=== PATIENT | female | born 1960 | race Caucasian/White ===

== ENCOUNTER 2019-05-03 13:30 | Inpatient (IN) | payer BC ==
[~2019-05-03] VITALS: Ht 152.4 cm; Wt 74.2 kg
[2019-05-30] VITALS (11 sets, daily range): BP systolic 95–138; BP diastolic 47–83; PULSE 75–99; TEMP 97.3–98.9
[2019-05-30] MEDS ORDERED: NORVASC 5MG5 MG/TAB PO (06:35)
[2019-05-30] MEDS ORDERED: PRINIVIL10 MG PO (06:36)
[2019-05-30] MEDS ORDERED: NEXIUM 24HR20 M1 PO (06:37)
[2019-05-30] MEDS ORDERED: PRESERVISION1 SGL PO (06:38)
[2019-05-30] MEDS ORDERED: STOOL SOFTENER100 M2 PO (06:38)
[2019-05-30] MEDS ORDERED: ALEVE 220MG220 MG PO (06:39)
--- NOTE | 2019-05-30 12:55 | NUR ---
Pt arrived to floor at this time via bed with OR staff. Sleepy but arouses and states she is having pain. Discussed need to keep risk for RR depression and NREMT depression a priority but will give pain medications as ordered. Abd has 5 lap sites and 1 midline that are all CDI, midline covered with gauze and tape and five lap sites covered with bandaids. IVF to LH. Family at bedside, will continue to monitor.
--- NOTE | 2019-05-30 18:13 | NUR ---
Pt doing well. Resting in bed after getting up and ambulating around floor. Doing well. Abd remains CDI. Will give bedside shift report to nightshift nurse who will resume care.
--- NOTE | 2019-05-30 20:00 | NUR ---
Report received from Tammie MCLAUGHLIN. Patient sitting up on side of bed then ambulates in hallway with PRODUCT SUPPORT ENGINEER. Steady gait. Denies dizzines. Reports shoulder discomfort. Scheduled pain meds reviewed and given along with antibiotics ordered. Rests back in bed. Warm pack to back and shoulders.
--- NOTE | 2019-05-30 22:30 | NUR ---
Reports "think it's a sinus headache" 5/10 on pain scale and scheduled tylenol given. Reports 45 minutes later that headache gone. Kpad given to back and shoulders.
--- NOTE | 2019-05-31 02:30 | NUR ---
Awakened by nurse for IV toradol. States abdominal soreness 12/06 "not too bad". Snack of ensure clear and grape popsicle given.
[2019-05-31 03:28] VITALS: BP 113/64; PULSE 93; TEMP 98.3
--- NOTE | 2019-05-31 03:30 | NUR ---
Patient ambulated in hallway with LAND RESOURCE SPECIALIST.
--- NOTE | 2019-05-31 06:06 | NUR ---
patient awake and has moist harsh couph encouraged . Reports abdominal soreness 03/07 following couph. Scheduled tylenol given.
[2019-05-31 06:54] LABS: BASO % 0.2 % (0.0-2.0); GRAN # 10.4 (1.4-6.5); GRAN % 81.8 % (42.2-75.2); HEMOGLOBIN 11.9 g/dl (12.5-16.0); LYMPH # 1.2 (1.2-3.4); MEAN CELL VOLUME 94 fl (80.0-100.0); MEAN CORPUSCULAR HEMOGLOBIN 32 pg (27.0-31.0); MEAN CORPUSCULAR HGB CONC 34 g/dl (33.0-37.0); MEAN PLATELET VOLUME 11.1 fl (7.4-10.4); MONO # 1.1 (0.1-0.6); MONO % 8.5 % (1.7-9.3); PLATELET COUNT 206 K/mm3 (130-400); RED BLOOD COUNT 3.69 M/mm3 (4.10-5.30); REDCELL DISTRIBUTION WIDTH-CV 13.6 % (11.5-14.5)
[2019-05-31 06:58] LABS: HEMATOCRIT 34.8 % (37.0-47.0)
[2019-05-31 07:02] LABS: CALCIUM 8.4 mg/dL (8.4-10.2); CREATININE, serum 0.58 (0.52-1.25); POTASSIUM 3.7 mmol/L (3.4-5.0)
[2019-05-31 07:55] VITALS: BP 111/65; PULSE 91; TEMP 98.7
--- NOTE | 2019-05-31 08:00 | NUR ---
UPON ENTRY TO THE ROOM THE PATIENT IS RESTING IN BED. PATIENT IS A&OX4. TACHYCARDIA NOTED, OTHERWISE VSS. BOWEL SOUNDS HYPOACTIVE ALL FOUR QUADRANTS. PATIENT TOLERATING CLEAR LIQUIDS WITH SOME NAUSEA. PATIENT DENIES VOMITING. ABDOMINAL LAP SITES X5 DRESSED WITH BANDAIDS AND ARE CD&I. LOW TRANSVERSE DRESSED WITH GAUZE & HYPAFIX DRESSING WITH SCANT AMOUNTS OF SHADING PRESENT. K-PAD TO ABDOMEN. INDWELLING MURCIA CATHETER TO DEPENDENT DRAINAGE WITH CLEAR, PALE YELLOW URINE PRESENT IN MURCIA BAG. LEFT HAND TO INT. POSITIVE PEDAL PULSES EQUAL BILATERALLY. SCD'S TO BLE. CALL LIGHT WITHIN REACH. PATIENT DENIES ANY OTHER NEEDS AT THIS TIME.
--- NOTE | 2019-05-31 09:58 | NUR ---
Initial visit; Patient thanked Private Equity Analyst for looking in on her and offering God's blessings.
[2019-05-31 13:00] VITALS: BP 127/70; PULSE 92; TEMP 98.4
--- NOTE | 2019-05-31 13:48 | NUR ---
Plan:To return home with family supports. Assess: Patient reports that she resides alone at home in [facility]. Patient indicated that she has some family and friend support. Patient reports that her EMR contact is Ursula Jiang . Patient will be transported home by friend. Patient reports that she uses [facility] for RX and does not require any DME. Patient denies having a DPOA and declined setting one up. Client inidcated that she has an ADA apt. Action: VIVIANA educated patient on resources available. No additional concerns identifed.
--- NOTE | 2019-05-31 14:34 | NUR ---
PATIENT STATES THAT SHE IS FEELING NAUSEATED. PATIENT GIVEN PRN DOSE OF IV ZOFRAN. WILL CONTINUE TO MONITOR.
[2019-05-31 16:26] VITALS: BP 120/62; PULSE 91
--- NOTE | 2019-05-31 19:28 | NUR ---
REPORT GIVEN TO LISSETTE MCKINNON.
[2019-05-31 19:48] VITALS: BP 119/69; PULSE 107; TEMP 98.8
--- NOTE | 2019-05-31 20:32 | NUR ---
Patient request "something for heartburn" prior to adminstration of medication. Spoke with Dr. Pro. Tums 1-2 tabs Q4H PRN.
--- NOTE | 2019-05-31 20:45 | NUR ---
Resting in bed. Assessment complete. Bases bilaterally crackles otherwise clear. Heart sounds normal. Bowels active x4. Pulses strong throughout. No edema noted. X5 lap sites CDI with bandaides. x1 left lower ABD transverse site, small areas x2 of drainage present. Reports 3/10 pain. Provided with scheduled toradol. Denies other needs at this time. Call light in reach.
--- NOTE | 2019-05-31 21:45 | NUR ---
Resting in bed. Denies needs at this time. Would like 2330 dose of tylenol at 0030. Call light in reach.
[2019-05-31 23:30] VITALS: BP 114/83; PULSE 119; TEMP 99.8
--- NOTE | 2019-05-31 23:40 | NUR ---
Patient reports bloody urine. Upon assessment small clot present in urine collection device. Patient reports first occurance. Denies pain or any other complications. Will closely monitor. Refused tylenol at this time.
--- NOTE | 2019-06-01 00:40 | NUR ---
Request PRN tums for heartburn. Provided with tums. Denies other needs. Call light in reach.
[2019-06-01 01:05] VITALS: PULSE 83
--- NOTE | 2019-06-01 01:05 | NUR ---
Pulse 119 with midnight vitals. RESIDENTIAL MENTAL HEALTH WORKER reports pain was up in restroom at time. Reassessed pulse now 83 while resting. Denies needs. Call light in reach.
--- NOTE | 2019-06-01 02:34 | NUR ---
Patient reports continued heart burn with nausea. Provided with PRN zofran. Patient had x2 episodes of emesis, red tinged. While vomiting-small amount of blood from vaginal area present on bed. Patient assisted to restroom for episode of diarrhea at this time. Patient requested privacy in restroom. Will reassess soon.
--- NOTE | 2019-06-01 02:45 | NUR ---
Patient diarrhea appears light brown stool with small dark red blood clots-minimal amount. Patient reports feeling better after. Will continue to closely monitor. Educated patient to report any more episodes of emesis/diarrhea.
[2019-06-01 03:23] VITALS: BP 122/75; PULSE 103; TEMP 98.3
--- NOTE | 2019-06-01 03:31 | NUR ---
Resting in bed. Denies needs. Call light in reach
--- NOTE | 2019-06-01 05:05 | NUR ---
Reports heart burn would like 0700 protonix now, refused tums and tylenol. Provided to patient. Will monitor.
--- NOTE | 2019-06-01 06:15 | NUR ---
Patient had x2 episodes of vomiting and x2 episodes of diarrhea throughout night. Refused tylenol and toradol throughout night. Reported heart burn- states protonix does not work as well as nexium. Has PRN tums ordered. Asleep in bed this AM. Call light in reach.
--- NOTE | 2019-06-01 06:57 | NUR ---
Report given to LISSETTE Merida
--- NOTE | 2019-06-01 08:00 | NUR ---
UPON ENTRY TO THE ROOM THE PATIENT IS RESTING IN BED. PATIENT IS A&OX4. VSS. BOWEL SOUNDS ACTIVE ALL FOUR QUADRANTS. PATIENT MAIN COMPLAINT IS HEARTBURN. PATIENT DENIES NAUSEA AND VOMITING. ABDOMINAL LAP SITES X5 DRESSED WITH BANDAIDS AND ARE CD&I. LOW TRANSVERSE DRESSED WITH GAUZE & HYPAFIX DRESSING WITH SCANT AMOUNTS OF SHADING PRESENT. K-PAD TO ABDOMEN. LEFT HAND TO INT. POSITIVE PEDAL PULSES EQUAL BILATERALLY. CALL LIGHT WITHIN REACH. PATIENT DENIES ANY OTHER NEEDS AT THIS TIME.
[2019-06-01 08:55] VITALS: BP 106/75; PULSE 89; TEMP 97.9
--- NOTE | 2019-06-01 10:42 | NUR ---
DR. BAUTISTA CALLED AND NOTIFIED THAT THE PATIENTS HEARTBURN HAS BEEN UNCONTROLLED WITH PROTONIX, ZOFRAN AND TUMS. CBC WITH AUTO DIFF, REGLAN 10 MG IV Q6H PRN, PATIENT OKAY TO TAKE HOME NEXIUM TORB FROM DR. BAUTISTA TO THIS NURSE.
[2019-06-01 10:45] LABS: BASO % 0.3 % (0.0-2.0); EOS % 0.3 % (0-4.0); GRAN # 9.3 (1.4-6.5); GRAN % 81.3 % (42.2-75.2); HEMOGLOBIN 13.4 g/dl (12.5-16.0); LYMPH # 1.2 (1.2-3.4); LYMPH % 10.2 % (20.0-51.0); MEAN CELL VOLUME 93 fl (80.0-100.0); MEAN CORPUSCULAR HEMOGLOBIN 31 pg (27.0-31.0); MEAN CORPUSCULAR HGB CONC 34 g/dl (33.0-37.0); MEAN PLATELET VOLUME 10.2 fl (7.4-10.4); MONO # 0.9 (0.1-0.6); MONO % 7.5 % (1.7-9.3); PLATELET COUNT 209 K/mm3 (130-400); RED BLOOD COUNT 4.32 M/mm3 (4.10-5.30); REDCELL DISTRIBUTION WIDTH-CV 13.7 % (11.5-14.5)
[2019-06-01 13:16] VITALS: BP 110/69; PULSE 95; TEMP 98.1
[2019-06-01] MEDS ORDERED: LEVAQUIN 5500 MG/TA1 PO (15:32)
[2019-06-01 16:50] VITALS: BP 107/59; PULSE 93; TEMP 98.6
--- NOTE | 2019-06-01 19:30 | NUR ---
REPORT GIVEN TO LISSETTE HORTON.
[2019-06-01 20:03] VITALS: BP 99/56; PULSE 84; TEMP 98.8
[2019-06-02 00:23] VITALS: BP 119/67; PULSE 94; TEMP 98.9
[2019-06-02 04:16] VITALS: BP 108/76; PULSE 88; TEMP 97.8
--- NOTE | 2019-06-02 04:29 | NUR ---
Patient has rested well this shift. Moved to 342 from 341 so patient could shower. Denies any pain. One dose of Zofran given at beginning of shift. Denies any other needs. Will continue to monitor.
[2019-06-02 08:00] VITALS: BP 128/83; PULSE 79; TEMP 98.1
--- NOTE | 2019-06-02 08:00 | NUR ---
Dr. Dominguez saw patient. Taking clear liquids slowly. Denies nausea or pain.
[2019-06-02 11:41] VITALS: BP 113/71; PULSE 87; TEMP 98.5
[2019-06-02 16:32] VITALS: BP 125/78; PULSE 77; TEMP 98.3
--- NOTE | 2019-06-02 18:00 | NUR ---
Taking low fiber diet slowly without nausea.
[2019-06-02 21:55] VITALS: BP 108/83; PULSE 81; TEMP 98.2
[2019-06-03] VITALS: BP 109/67; PULSE 85; TEMP 98.4
[2019-06-03 02:46] VITALS: BP 118/73; PULSE 69; TEMP 98.1
--- NOTE | 2019-06-03 05:28 | NUR ---
Patient rested well overnight. Patient continues to refuse medications associated with the ERAS protocol, stating that she had been very nauseous while taking them. Patient denied pain and continues to deny pain or further needs, call light within reach.
[2019-06-03 07:55] VITALS: BP 120/73; PULSE 75; TEMP 98.1
--- NOTE | 2019-06-03 09:00 | NUR ---
Denied pain or nausea. Ate applesauce. Abdominal lap sites CDI. Dr. Dominguez saw patient. Dismissed to home with family.
== END 2019-06-03 09:00 | disposition home or self-care (01) | DRG 331 ==
LOC: SURG 05-23 09:00 → INPTSU 05-30 05:03 → SURG 05-30 07:30
PROVIDERS: ADMIT Surgery
PROC: 0JN83ZZ Release Abdomen Subcutaneous Tissue and Fascia, Percutaneous Approach (ICD-10-PCS; 2019-05-30)
PROC: 0DJD4ZZ Inspection of Lower Intestinal Tract, Percutaneous Endoscopic Approach (ICD-10-PCS; 2019-05-30)
PROC: 0DTN4ZZ Resection of Sigmoid Colon, Percutaneous Endoscopic Approach (ICD-10-PCS; principal; 2019-05-30 07:30)
DX: N82.3 Fistula of vagina to large intestine (principal); K57.30 Diverticulosis of large intestine without perforation or abscess without bleeding; I10 Essential (primary) hypertension; K21.9 Gastro-esophageal reflux disease without esophagitis; Z90.710 Acquired absence of both cervix and uterus; Z88.0 Allergy status to penicillin
CPT/HCPCS: A4314; A9284; J0690; J1100; J1650; J1885; J2370; J2405; J2704; J2765; J7120

== ENCOUNTER 2022-10-28 08:19 | Day surgery (SDC) | payer BC ==
[2022-10-28] VITALS (13 sets, daily range): BP systolic 83–132; BP diastolic 55–80; PULSE 57–115; TEMP 97.5–98.5
[~2022-10-28] VITALS: Ht 154.9 cm; Wt 73.0 kg
[~2022-10-28 08:19] MED LIST: ALEVE 220MG220 MG PO; LEVAQUIN 5500 MG/TA1 PO; NEXIUM 24HR20 M1 PO; NORVASC 5MG5 MG/TAB PO; PRESERVISION1 SGL PO; PRINIVIL10 MG PO; STOOL SOFTENER100 M2 PO
[2022-10-28 09:58] LABS: HEMOGLOBIN 14.1 g/dl (12.5-16.0); MEAN CELL VOLUME 92 fl (80.0-100.0); MEAN CORPUSCULAR HEMOGLOBIN 33 pg (27-31); MEAN CORPUSCULAR HGB CONC 35 g/dl (33.0-37.0); MEAN PLATELET VOLUME 10.5 fl (7.4-10.4); PLATELET COUNT 231 K/mm3 (130-400); RED BLOOD COUNT 4.33 M/mm3 (4.10-5.30); REDCELL DISTRIBUTION WIDTH-CV 13.7 % (11.5-14.5)
[2022-10-28 10:11] LABS: PROTHROMBIN TIME 11.7 SECONDS (9.7-12.8)
[2022-10-28 10:13] LABS: CALCIUM 9.4 mg/dL (8.4-10.2); CREATININE, serum 0.73 mg/dL (0.57-1.11); POTASSIUM 4.2 mmol/L (3.5-4.5)
--- NOTE | 2022-10-28 12:14 | NUR ---
Pt rec'd to room 317 s/p pacemaker placement. Pt A/O x4. Pacemaker site dressing CDI. Sling to LUE in place. Pt verbalizes understanding of LUE restriction. Ice applied. Pt reports 8/10 pain to the site. VSS- see flowsheet. On RA. IV site to LFA without s/s complications.
--- NOTE | 2022-10-28 12:38 | NUR ---
Tylenol administered po for c/o pain to pacemaker site. Rates pain 04/07.
--- NOTE | 2022-10-28 13:34 | NUR ---
ASSESSMENT COMPLETED AT 1015 PRE PROCEDURE. PROCEDURE DONE IN OR ROOM AND NO ACCESS TO MEDITECH DURING CASE. SEE MERGE FOR ALL MEDICATION ADMINISTRATION TIMES/DOSAGES AND INTRA/POST PROCEDURE SEDATION ASSESSMENTS.
--- NOTE | 2022-10-28 16:00 | NUR ---
Pt rates pain 4/10 to pacemaker site. Ice refreshed and patient feels like that is helping. Tylenol can be given again at 1638.
--- NOTE | 2022-10-28 16:59 | NUR ---
Tylenol administered po for c/o pain to pacemaker site. Rates pain 4/10.
--- NOTE | 2022-10-28 19:32 | NUR ---
Ice refreshed and reapplied to pacemaker site. Pt rates pain 3/10.
[2022-10-29 03:49] VITALS: BP 102/70; PULSE 65; TEMP 98.7
--- NOTE | 2022-10-29 08:00 | NUR ---
Patient laying in bed, A&Ox4. VSS. IV CDI. LF arm in sling. ANGEL chest incision site CDI, free from hematoma, ice applied. Reports pain 6/10. Pain medication given by prior nurse. Call light within reach
[2022-10-29 08:10] VITALS: BP 112/63; PULSE 60; TEMP 98.2
--- NOTE | 2022-10-29 11:04 | NUR ---
Aircraft Ordnance Systems Mechanic met with Patient at bedside to conduct Care Managment Assessment and discuss discharge planning. Patient verrifies that she lives in [place], [place] and Ursula, (friend) is her EMC. Patient is established with PCP Dr. Arevalo and established with [facility] for insurance. Patient denies the use of O2, DME and home health services prior to admission. Patient declines advanced directives at this time. Discharge Plan: Patient intends to discharge direct to home when medically cleared with self-provided transportation.
--- NOTE | 2022-10-29 11:33 | NUR ---
Initial visit: Pt was resting and content. Pt stated she has no needs right now. Pt appreciated the visit. Airframe And Powerplant Mechanic will follow up as needed.
[2022-10-29] MEDS ORDERED: CLEOCIN HCL300 MG PO (13:36)
[2022-10-29] MEDS ORDERED: CARDIZEM CD 12120 MG PO (13:37)
[2022-10-29] MEDS ORDERED: NORCO 325 MG-51 TAB PO (13:37)
--- NOTE | 2022-10-29 14:21 | NUR ---
Discharge paperwork reviewed with the patient. Patient verbalized an understanding to follow doctors orders. IV removed, tip intact. Gauze and coban applied. LF arm in sling. Patient ambulated independently to patient entrance. No further needs expressed.
== END 2022-10-29 14:04 | disposition home or self-care (01) ==
LOC: COL.CAR 08:19 → MEDICAL 12:48 → COL.CAR 10-29 14:04
PROVIDERS: Internal Medicine Cardiovascular Disease
DX: I49.5 Sick sinus syndrome (principal); F17.210 Nicotine dependence, cigarettes, uncomplicated; I10 Essential (primary) hypertension; Z86.16 Personal history of COVID-19
CPT/HCPCS: OP; C1785; C1898; J2250; J3010; J3370; J7030; Q9967